=== PATIENT | female | born 1965 | race Caucasian/White ===

== ENCOUNTER 2017-12-17 08:42 | Emergency (ER) | payer OTHER ==
[2017-12-17 09:00] VITALS: BP 113/75; PULSE 82; RESP 20; TEMP 98; O2SAT 98
[2017-12-17] MEDS ORDERED: Naproxen 550 mg Tab PO STA (09:19)
--- NOTE | 2017-12-17 09:24 | C.PDOC ---
History Of Present Illness Patient presents to ED c/o left posterior shoulder/arm pain with tingling radiating down the left arm x approx 1 week. Patient also c/o right knee pain, right heel pain, and diffuse body itching. She denies falls/injuries, chest pain, SOB, fever, cough, rash, abdominal pain, nausea/vomiting/diarrhea, dysuria /hematuria. Time Seen by Provider: 12/17/17 09:06 Chief Complaint (Nursing): Upper Extremity Problem/Injury History Per: Patient History/Exam Limitations: no limitations Onset/Duration Of Symptoms: Days Current Symptoms Are (Timing): Still Present Quality: "Pain", Other (itching ) Severity: Mild Past Medical History Reviewed: Historical Data, Nursing Documentation, Vital Signs Vital Signs: Last Vital Signs Temp 98.0 F 12/17/17 08:54 Pulse 82 12/17/17 08:54 Resp 20 12/17/17 08:54 BP 113/75 12/17/17 08:54 Pulse Ox 98 12/17/17 09:35 - Medical History PMH: Anemia, Asthma, Bronchitis, Migraine Surgical History: Appendectomy Family History: States: No Known Family Hx - Social History Hx Tobacco Use: No Hx Alcohol Use: No Hx Substance Use: No - Immunization History Hx Tetanus Toxoid Vaccination: No Hx Influenza Vaccination: No Hx Pneumococcal Vaccination: No Review Of Systems Constitutional: Negative for: Fever, Chills Cardiovascular: Negative for: Chest Pain Respiratory: Negative for: Shortness of Breath Gastrointestinal: Negative for: Nausea, Vomiting, Abdominal Pain, Diarrhea Genitourinary: Negative for: Dysuria, Hematuria Musculoskeletal: Positive for: Other (left arm, left knee, left heel) Skin: Negative for: Rash Physical Exam - Physical Exam Appears: Non-toxic, No Acute Distress, Other (bizarre affect) Skin: Normal Color, Warm, Dry Head: Normacephalic Eye(s): bilateral: Normal Inspection Oral Mucosa: Moist Neck: Normal Cardiovascular: Rhythm Regular Respiratory: Normal Breath Sounds, No Rales, No Rhonchi, No Wheezing Extremity: Normal ROM, Capillary Refill (< 2 sec all digits B/L hands), No Deformity, No Swelling, Other (left shoulder milf posterior TTP without deformity or swelling) Extremity: Bilateral: Atraumatic, Normal Color And Temperature, Normal ROM Pulses: Left Radial: Normal, Right Radial: Normal Neurological/Psych: Oriented x3, Normal Motor, Normal Sensation Gait: Steady ED Course And Treatment O2 Sat by Pulse Oximetry: 98 (RA) Pulse Ox Interpretation: Normal Progress Note: Patient requesting blood work. Explained to patient her arm pain /tingling is due to cervical radiculpathy, and that blood work will not be helpful. She was given PO Naprosyn, Flexeril and Benadryl, and understands that routine blood work needs to be done by her PMD or medical clinic. Accucheck WNL. Rxs for Naprosyn, Flexeril and Benadryl given. Patient understands she should return to ED if she has concering/worsenoing symptoms. Reassessment Condition: Improved Disposition Counseled Patient/Family Regarding: Diagnosis, Need For Followup, Rx Given - Disposition Referrals: [facility] [Outside] Disposition: HOME/ ROUTINE Disposition Time: 09:30 Condition: STABLE Additional Instructions: FOLLOW UP IN THE MEDICAL CLINIC IN 1-2 DAYS AND FOR ROUTINE BLOOD WORK USE MEDICATIONS DIRECTED RETURN TO EMERGENCY ROOM IF SYMPTOMS WORSEN SEGUIMIENTO EN LA CLNICA MDICA EN 1-2 CARLS[place] Y PARA EL [place] RUTIN[place] USE MEDICAMENTOS SEGN LO INDICADO REGRESE AL ILIR DE EMERGENCIA SI LOS SNTOMAS EMPEORAN Prescriptions: Cyclobenzaprine [Flexeril] 10 mg PO BID PRN #15 tab PRN Reason: Muscle Spasm DiphenhydrAMINE [Benadryl] 25 mg PO Q6 PRN #20 cap PRN Reason: Itching / Pruritus Naproxen 375 mg PO BID PRN #20 tablet PRN Reason: pain Instructions: Radiculopathy (DC), Itchy Skin Forms: [employer] (Kazakh) Print Language: ICELANDIC - Clinical Impression Clinical Impression: Cervical radiculopathy, Generalized pruritus, Arthralgia
[2017-12-17] MEDS ORDERED: Naproxen 550 mg Tab PO ONE (09:25)
== END 2017-12-17 09:34 | disposition home or self-care (01) ==
LOC: C.ER 08:42
DX: M54.12 Radiculopathy, cervical region (principal); L29.9 Pruritus, unspecified; M25.50 Pain in unspecified joint

== ENCOUNTER 2018-07-25 08:09 | Outpatient (CLI) | payer SELFPAY | END 2018-07-25 08:10 | disposition home or self-care (01) | LOC: C.LAB 08:09 | DX: M86.171 Other acute osteomyelitis, right ankle and foot (principal) ==

== ENCOUNTER 2018-07-29 08:35 | Outpatient (CLI) | payer SELFPAY | END 2018-07-29 08:36 | disposition home or self-care (01) | LOC: C.RADH 08:35 | DX: M87.17 Osteonecrosis due to drugs, ankle, foot and toes (principal) ==

== ENCOUNTER 2018-11-07 17:00 | Emergency (ER) | payer OTHER, SELFPAY ==
[2018-11-07 17:43] VITALS: BMI 33.9
--- NOTE | 2018-11-07 19:26 | C.PDOC ---
History Of Present Illness 53-year-old female presents to the ED for evaluation of left-sided rib pain which began after she sustained a fall around 3 days ago. Patient states she fell off her bed on Wednesday and accidentally hit the left side if her rib cage. Patient had minimal pain at the time, which was managed after taking [id number] pain medication. Today, patient's pain returned when she went to lift a five-pound object and is worse with inspiration and movement. She denies any new trauma, shortness of breath, head injury, LOC. Time Seen by Provider: 11/07/18 17:53 Chief Complaint (Nursing): Rib Injury History Per: Patient History/Exam Limitations: no limitations Onset/Duration Of Symptoms: Days (3) Current Symptoms Are (Timing): Still Present Additional History Per: Patient Past Medical History Reviewed: Historical Data, Nursing Documentation, Vital Signs Vital Signs: Last Vital Signs Temp 98.5 F 11/07/18 17:44 Pulse 89 11/07/18 17:44 Resp 19 11/07/18 17:44 BP 126/82 11/07/18 17:44 Pulse Ox 97 11/07/18 17:44 Primary Care Provider: Clinic,Med Surg - Medical History PMH: Anemia, Asthma, Bronchitis, Migraine Denies: Chronic Kidney Disease Surgical History: Appendectomy Family History: States: Unknown Family Hx - Social History Hx Tobacco Use: No Hx Alcohol Use: No Hx Substance Use: No - Immunization History Hx Tetanus Toxoid Vaccination: No Hx Influenza Vaccination: No Hx Pneumococcal Vaccination: No Review Of Systems Respiratory: Negative for: Shortness of Breath Musculoskeletal: Positive for: Other (left-sided rib pain ) Neurological: Negative for: Other (head injury, LOC ) Physical Exam - Physical Exam Appears: Non-toxic, No Acute Distress (+) Skin: Normal Color, Warm, Dry Head: Atraumatic, Normacephalic Eye(s): bilateral: Normal Inspection Oral Mucosa: Moist Neck: Supple Chest: Symmetrical, No Deformity, Tenderness (to left intercostal area, around T4-T5 region ), No Ecchymosis, No Other (crepitus, erythema ) Cardiovascular: Rhythm Regular, No Murmur Respiratory: Normal Breath Sounds, No Rales, No Rhonchi, No Wheezing Gastrointestinal/Abdominal: Soft, No Tenderness, No Guarding, No Rebound Back: No Vertebral Tenderness, No Paraspinal Tenderness Extremity: Normal ROM, Capillary Refill (less than 2 seconds ) Neurological/Psych: Oriented x3, Normal Speech, Normal Cognition ED Course And Treatment O2 Sat by Pulse Oximetry: 97 (on RA) Pulse Ox Interpretation: Normal Progress Note: Left ribs and chest XR ordered and reviewed. There is no evidence of pneumothorax. Patient with a T5 fracture, and questionable T6 fracture. Toradol IM and Valium PO given for pain. On reassessment, patient is resting comfortably, showing no signs of distress and is stable for discharge. Patient is given spirometer and encouraged breathing exercises at home. Patient is advised to follow up with PMD within 1-2 days for further evaluation and/or return to the ED if symptoms persist or worsen. Disposition Counseled Patient/Family Regarding: Diagnosis, Need For Followup, Rx Given - Disposition Referrals: [facility] [Outside] Disposition: HOME/ ROUTINE Disposition Time: 19:23 Condition: STABLE Additional Instructions: Take medications as directed Follow up with PMD or in medical clinic Return to ER if worse Prescriptions: Cyclobenzaprine [Cyclobenzaprine HCl] 10 mg PO BID #14 tab Ibuprofen [Motrin] 600 mg PO Q6H #30 tab Instructions: Rib Fracture (DC) Forms: Work/School/Gym Excuse, [employer] (Georgian) Print Language: NAURUAN - Clinical Impression Clinical Impression: Closed rib fracture - Scribe Statement The provider has reviewed the documentation as recorded by the Scribe (Brenda Myrick) All medical record entries made by the Scribe were at my direction and personally dictated by me. I have reviewed the chart and agree that the record accurately reflects my personal performance of the history, physical exam, medical decision making, and the department course for this patient. I have also personally directed, reviewed, and agree with the discharge instructions and disposition.
[2018-11-07 19:50] VITALS: BP 138/72; PULSE 85; RESP 20; TEMP 97.8
[2018-11-07 19:54] VITALS: O2SAT 97
--- NOTE | 2018-11-08 08:22 | RAD ---
Date of service: 11/07/2018 PROCEDURE: Radiographs of the Chest and Left Ribs. HISTORY: fell and hit left ribs 3d , heavy lift today COMPARISON: 07/28/2016. TECHNIQUE: Frontal radiograph of the chest and multiple oblique radiographs of the left ribs were obtained. 4 views obtained. FINDINGS: LEFT RIBS: Nondisplaced suspect left 5th in left 6 posterolateral fractures. LUNGS: Shallow lung volumes. Discoid atelectasis short segmental-lateral left lung base only suggested on one view series 1, image 1. PLEURA: No pneumothorax or pleural fluid. CARDIOVASCULAR: Normal cardiac size. No pulmonary vascular congestion. No aortic atherosclerotic calcification present OTHER FINDINGS: None. IMPRESSION: Left 5th and 6 posterolateral-lateral nondisplaced rib fractures. No gross pneumothorax seen. No gross pleural effusion. Comments findings appreciated on the ER note
== END 2018-11-07 20:12 | disposition home or self-care (01) ==
LOC: C.ER 17:00
DX: S22.32XA Fracture of one rib, left side, initial encounter for closed fracture (principal); W06.XXXA Fall from bed, initial encounter
CPT/HCPCS: 71101; 96372; 99284; J1885